=== PATIENT | male | born 1940 | race African-American/Black ===

== ENCOUNTER 2016-09-24 11:13 | Day surgery (SDC) | payer OTHER ==
--- NOTE | ~2016-09-24 | EGD ---
EGD REPORT [facility] [address] [id number] NAME: JASON UNDERWOOD : [birth year] STATUS : REG [facility] PAT#: [id number] AGE: 76 ADM/REG DATE : 09/24/16 MR#: [id number] REPORT SERV DATE: 09/24/16 DICTATED BY: NIURKA GRAHAM DATE: 09/24/16 REPORT STATUS : Draft TRANSCRIBED BY: [employer] DATE: 09/24/16 [facility] Patient Name: Jason Underwood Date of : 1940 Attending MD: CHECO GRAHAM MD Procedure Date No Time: 09/24/2016 Procedure: Colonoscopy Indications: High risk colon cancer surveillance: Personal history of colonic polyps Referring MD: MILY DEVLIN MD Medicines: See the Anesthesia note for documentation of the administered medications Complications: No immediate complications. Estimated blood loss: None. Procedure: Pre-Anesthesia Assessment: - ASA Grade Assessment: III - A patient with severe systemic disease. - Prior to the procedure, a History and Physical was performed, and patient medications and allergies were reviewed. The patient's tolerance of previous anesthesia was also reviewed. The risks and benefits of the procedure and the sedation options and risks were discussed with the patient. All questions were answered, and informed consent was obtained. Prior Anticoagulants: The patient has taken no previous anticoagulant or antiplatelet agents. After reviewing the risks and benefits, the patient was deemed in satisfactory condition to undergo the procedure. After I obtained informed consent, the scope was passed under direct vision. Throughout the procedure, the patient's blood pressure, pulse, and oxygen saturations were monitored continuously. The PCF [id number] was introduced through the anus and advanced to the terminal ileum. The ileocecal valve, appendiceal orifice, terminal ileum and rectum were photographed. The entire colon was examined. The colonoscopy was performed without difficulty. The patient tolerated the procedure well. The quality of the bowel preparation was adequate. Findings: The perianal and digital rectal examinations were normal. The terminal ileum appeared normal. A few small-mouthed diverticula were found in the entire colon. Non-bleeding internal hemorrhoids were found during retroflexion and were Grade I (internal hemorrhoids that do not prolapse). No other significant abnormalities were identified in a careful EGD REPORT [address] [id number] NAME: JASON UNDERWOOD : [birth year] STATUS : REG [facility]#: [id number] AGE: 76 ADM/REG DATE : 09/24/16 MR#: [id number] REPORT SERV DATE: 09/24/16 DICTATED BY: NIURKA GRAHAM DATE: 09/24/16 REPORT STATUS : Draft TRANSCRIBED BY: [employer] DATE: 09/24/16 examination of the remainder of the colon. Impression: - The examined portion of the ileum was normal. - Diverticulosis in the entire examined colon. - Non-bleeding internal hemorrhoids. Recommendation: - Patient has a contact number available for emergencies. The signs and symptoms of potential delayed complications were discussed with the patient. Return to normal activities tomorrow. Written discharge instructions were provided to the patient. - Regular diet. - Discharge patient to home. - Continue present medications. - Repeat colonoscopy is not recommended for surveillance. Procedure Code(s): --- Professional --- 06827, Colonoscopy, flexible, proximal to splenic flexure; diagnostic, with or without collection of specimen(s) by brushing or washing, with or without colon decompression (separate procedure) Diagnosis Code(s): --- Professional --- K64.0, First degree hemorrhoids K57.30, Diverticulosis of large intestine without perforation or abscess without bleeding Z86.010, Personal history of colonic polyps CPT copyright 2013 [employer] [place] [employer]. All rights reserved. The codes documented in this report are preliminary and upon attraction attendant review may be revised to meet current compliance requirements. CHECO GRAHAM MD 09/24/2016 1:49 PM This report has been signed electronically. Number of Addenda: 0 Note Initiated On: 09/24/2016 1:25 PM Scope Withdrawal Time 0 hours 6 minutes 32 seconds [address] [id number]
[~2016-09-24 11:13] MED LIST: ASAB PO; GLUCOTRO10 PO; GLUCPH PO; LIPITOR40 PO; LOP25 PO; NORV5 PO; TIMOLOL MAL0.5 % OPH; ZESTORETIC1 TA1 PO
== END 2016-09-24 23:59 | disposition home or self-care (01) ==
LOC: DMU 11:13
PROVIDERS: Internal Medicine Gastroenterology
PROC: 0DJD8ZZ Inspection of Lower Intestinal Tract, Via Natural or Artificial Opening Endoscopic (ICD-10-PCS; principal; 2016-09-24 14:00)
DX: Z12.11 Encounter for screening for malignant neoplasm of colon (principal); K64.0 First degree hemorrhoids; I25.10 Atherosclerotic heart disease of native coronary artery without angina pectoris; K57.30 Diverticulosis of large intestine without perforation or abscess without bleeding; I10 Essential (primary) hypertension; E11.9 Type 2 diabetes mellitus without complications; L30.9 Dermatitis, unspecified; H40.9 Unspecified glaucoma; R06.02 Shortness of breath; E78.00 Pure hypercholesterolemia, unspecified; Z86.010 Personal history of colon polyps; Z95.5 Presence of coronary angioplasty implant and graft; Z87.891 Personal history of nicotine dependence; Z85.46 Personal history of malignant neoplasm of prostate; Z92.21 Personal history of antineoplastic chemotherapy; Z92.3 Personal history of irradiation; Z90.79 Acquired absence of other genital organ(s); Z79.899 Other long term (current) drug therapy; Z79.82 Long term (current) use of aspirin; Z79.84 Long term (current) use of oral hypoglycemic drugs
CPT/HCPCS: 82962